=== PATIENT | male | born 1955 | race Caucasian/White ===

== ENCOUNTER 2016-10-02 07:37 | Day surgery (SDC) | payer OTHER ==
[~2016-10-02] VITALS: Ht 170.2 cm; Wt 127.0 kg
[~2016-10-02 07:37] MED LIST: ASPI-231 PO; ATO40T PO; CLOP75TA28 PO; DULO60CA PO; HCTZ25T PO; INSLISPI SC; IOHEXOL 350 MG/ML 100ML IJ ONE; LEVEMIR SC; LIDOCAINE 2%HCL (LOCAL ANESTH.) INJ 20ML MDV ONE; LISI-646 PO; METF-314 PO; METO200T29 PO; TAMS0.4C36 PO
[2016-10-02] MEDS ORDERED: fentaNYL CITRATE 100 MCG/2 ML VL ONE (08:16)
[2016-10-02] MEDS ORDERED: MIDAZOLAM HCL 1MG/1ML-2 ML VIAL ONE (08:16)
[2016-10-02] MEDS ORDERED: ANGIOMAX 250 MG VIAL IV ONE (08:16)
[2016-10-02] MEDS ORDERED: SODIUM CHL 0.9% 0 ML ONE (08:16)
[2016-10-02] MEDS ORDERED: LIDOCAINE 2%HCL (LOCAL ANESTH.) INJ 20ML MDV ONE (09:23)
== END 2016-10-02 13:27 | disposition home or self-care (01) ==
LOC: CATH 07:37
PROVIDERS: ATTEND Internal Medicine Cardiovascular Disease
DX: I25.10 Atherosclerotic heart disease of native coronary artery without angina pectoris (principal)
CPT/HCPCS: 93458; C1760; C1894; J1644; J2250; J3010; J7030; Q9967

== ENCOUNTER 2017-02-01 06:39 | Inpatient (IN) | payer OTHER ==
[~2017-02-01] VITALS: Ht 170.2 cm; Wt 124.0 kg
[~2017-02-01 06:39] MED LIST changes: -IOHEXOL 350 MG/ML 100ML IJ ONE; -LIDOCAINE 2%HCL (LOCAL ANESTH.) INJ 20ML MDV ONE; -METF-314 PO; +METF-371 PO
[2017-02-01] MEDS ORDERED: VANCOMYCIN 1GM/250ML D5W 250 ML IV ONE ×3 (07:18→07:30)
[2017-02-01] MEDS ORDERED: VANCOMYCIN HCL 1000 MG VL ONE ×2 (07:18→09:15)
[2017-02-01] MEDS ORDERED: VANCOMYCIN HCL 1000 MG VL IR ONE (07:30)
[2017-02-01] MEDS ORDERED: LIDOCAINE 2%HCL (LOCAL ANESTH.) INJ 20ML MDV ONE ×2 (07:32→07:38)
[2017-02-01] MEDS ORDERED: IOHEXOL 350 MG/ML 100ML IJ ONE (07:37)
[2017-02-01] MEDS ORDERED: MIDAZOLAM HCL 1MG/1ML-2 ML VIAL ONE (07:43)
[2017-02-01] MEDS ORDERED: fentaNYL CITRATE 100 MCG/2 ML VL ONE (07:43)
[2017-02-01] MEDS ORDERED: SODIUM CHLORIDE 0.9% 1,000 ML IV SCH (10:09)
[2017-02-01] MEDS ORDERED: NITROGLYCERIN 0.4 MG SL TAB SL PRN (10:15)
[2017-02-01] MEDS ORDERED: ACETAMINOPHEN 325 MG TAB PO PRN (10:15)
[2017-02-01] MEDS ORDERED: MORPHINE SULF INJ 2 MG/ML SYRINGE 1ML IV PRN (10:15)
[2017-02-01] MEDS ORDERED: HYDROcodone-ACET 5/325MG TAB PO PRN (10:15)
[2017-02-01] MEDS ORDERED: DEXTROSE (50%) 50ML SYRG IV PRN (10:30)
[2017-02-01] MEDS ORDERED: AMLO5TAB2 PO (10:31)
[2017-02-01] MEDS: ACCU-CHEK COMFORT CURVE STRIP VI SCH ×3 (11:30→22:38)
[2017-02-01] MEDS: NovoloG Insulin 1unit/0.01ml Soln (100units/ml) SC SCH ×2 (11:30→17:30)
[2017-02-01] MEDS: InsuLIN REG 1unit/0.01ml Soln (100units/ml) SC SCH ×3 (11:30→22:00)
[2017-02-01 13:33] VITALS: BP 126/72
[2017-02-01 13:56] VITALS: BP 126/72
[2017-02-01] MEDS ORDERED: INSULIN LISPRO SC SCH (14:00)
[2017-02-01 17:00] VITALS: BP 125/75
[2017-02-01 20:00] VITALS: BP 113/67
[2017-02-01 22:00] VITALS: BP 113/67
[2017-02-01] MEDS ORDERED: ATORVASTATIN 20 MG TAB PO SCH (22:00)
[2017-02-01] MEDS ORDERED: TAMSULOSIN HYDROCHLORIDE 0.4 MG CAP PO SCH (22:00)
[2017-02-01] MEDS ORDERED: PATIENTS OWN MEDICATION (Atorvastatin Calcium (Lipitor) 40 MG) PO SCH (22:00)
[2017-02-01] MEDS ORDERED: CLOPIDOGREL BISULFATE 75 MG TAB PO SCH (22:00)
[2017-02-01] MEDS ORDERED: INSULIN DETEMIR(LEVEMIR) 1unit/0.01ml Soln (100units/ml) SC SCH (22:00)
[2017-02-01] MEDS: VANCOMYCIN 1GM/250ML D5W 250 ML IV SCH (22:06)
[2017-02-01 22:09] VITALS: BP 125/75
[2017-02-01] MEDS: ASPirin-EC 81 mg tab PO SCH (22:09)
[2017-02-01] MEDS: metFORMIN HYDROCHLORIDE 850 MG TAB PO SCH (22:09)
[2017-02-01] MEDS: LISINOPRIL 20 MG TAB PO SCH (22:10)
[2017-02-02 05:00] VITALS: BP 138/79
[2017-02-02] MEDS: NovoloG Insulin 1unit/0.01ml Soln (100units/ml) SC SCH ×2 (06:34→11:23)
[2017-02-02] MEDS: InsuLIN REG 1unit/0.01ml Soln (100units/ml) SC SCH ×2 (06:35→11:23)
[2017-02-02] MEDS: ACCU-CHEK COMFORT CURVE STRIP VI SCH ×2 (06:35→11:14)
[2017-02-02 08:10] VITALS: BP 113/67
[2017-02-02] MEDS ORDERED: METOPROLOL SUCCINATE 200 MG PO SCH (10:00)
[2017-02-02] MEDS ORDERED: PATIENTS OWN MEDICATION (Duloxetine Hcl (Cymbalta) 60 MG) PO SCH (10:00)
[2017-02-02] MEDS ORDERED: METOPROLOL SUCCINATE XL 50 MG TAB PO SCH (10:00)
[2017-02-02] MEDS ORDERED: FAMOTIDINE 20 MG TAB PO SCH (10:00)
[2017-02-02] MEDS ORDERED: DULoxetine HCL 30 MG CAP PO SCH (10:00)
[2017-02-02] MEDS ORDERED: amLODIPine BESYLATE 5 MG TAB PO SCH (10:00)
[2017-02-02] MEDS ORDERED: HCTZ 25 MG TAB PO SCH (10:00)
[2017-02-02] MEDS: VANCOMYCIN 1GM/250ML D5W 250 ML IV SCH (11:04)
[2017-02-02] MEDS: metFORMIN HYDROCHLORIDE 850 MG TAB PO SCH (11:05)
[2017-02-02] MEDS: ASPirin-EC 81 mg tab PO SCH (11:06)
[2017-02-02] MEDS: LISINOPRIL 20 MG TAB PO SCH (11:09)
[2017-02-02 12:33] VITALS: BP 147/88
[2017-02-02 15:28] VITALS: BP 147/88
== END 2017-02-02 16:52 | disposition home or self-care (01) | DRG 244 ==
LOC: CATH 06:39 → TELE-E-ADS 06:40 → TELE-WESTW 14:40
PROVIDERS: ADMIT Specialist; ATTEND Specialist
PROC: 0JH606Z Insertion of Pacemaker, Dual Chamber into Chest Subcutaneous Tissue and Fascia, Open Approach (ICD-10-PCS; principal; 2017-02-01)
PROC: 02HK3JZ Insertion of Pacemaker Lead into Right Ventricle, Percutaneous Approach (ICD-10-PCS; 2017-02-01)
PROC: 5A09357 Assistance with Respiratory Ventilation, Less than 24 Consecutive Hours, Continuous Positive Airway Pressure (ICD-10-PCS; 2017-02-01)
PROC: 02H63JZ Insertion of Pacemaker Lead into Right Atrium, Percutaneous Approach (ICD-10-PCS; 2017-02-01)
PROC: B5171ZZ Fluoroscopy of Left Subclavian Vein using Low Osmolar Contrast (ICD-10-PCS; 2017-02-01)
DX: I44.30 Unspecified atrioventricular block (principal); E11.9 Type 2 diabetes mellitus without complications; K21.9 Gastro-esophageal reflux disease without esophagitis; G47.30 Sleep apnea, unspecified; H26.9 Unspecified cataract
CPT/HCPCS: 33208; 71010; 82962; 93005; 94660; 99152; C1785; J1815; J2250